=== PATIENT | female | born 1935 | race Caucasian/White ===

== ENCOUNTER → 2017-07-15 | Outpatient (REF) ==
[~2017-07-15] MED LIST: NORCO 325 MG-51 TAB PO; SYNTHROID0.075 MG/T PO; VALIUM 2MG T2 MG/TAB PO; ZESTRIL 5MG5 MG PO
== END ==
LOC: ZLAB.WCH 14:13
DX: Z01.89 Encounter for other specified special examinations (principal)

== ENCOUNTER → 2017-09-06 | Outpatient (REF) ==
[~2017-09-06] MED LIST changes: +AMBIEN 5MG TABLE5 MG PO; +CRESTOR40 MG PO; +FLONASEALLERGY INH; +LEVOXYL0.088 MG PO; +MICROZIDE12.5 MG PO; +NAPROSYN 2250 MG/TAB PO; +PLAVIX 75MG TAB75 MG PO
== END ==
LOC: ZLAB.WCH 18:04
DX: Z01.89 Encounter for other specified special examinations (principal)

== ENCOUNTER → 2017-09-22 | Outpatient (REF) ==
[~2017-09-22] MED LIST changes: +HCTZ12.5TAB PO; +LYRICA 75MG CAP75 MG PO; +SYNTHROID0.088 MG/T PO; +ZESTRIL 20MG TA20 MG PO
== END ==
LOC: ZLAB.WCH 08:45
DX: Z01.89 Encounter for other specified special examinations (principal)

== ENCOUNTER → 2018-03-07 | Outpatient (REF) | LOC: ZLAB.WCH 18:07 | DX: Z01.89 Encounter for other specified special examinations (principal) ==

== ENCOUNTER → 2018-03-14 | Outpatient (REF) | LOC: COL.CARD 15:04 | DX: Z01.818 Encounter for other preprocedural examination (principal) ==

== ENCOUNTER 2020-08-20 15:27 | Emergency (ER) | payer MEDICARE, OTHER ==
[~2020-08-20] VITALS: Ht 142.2 cm; Wt 39.5 kg
[2020-08-20 15:38] VITALS: TEMP 98.8
[2020-08-20 16:58] LABS: BASO % 0.9 % (0.0-2.0); EOS % 1.4 % (0-4.0); GRAN # 1.4 (1.4-6.5); GRAN % 64.6 % (42.2-75.2); HEMOGLOBIN 10.3 g/dl (12.5-16.0); LYMPH # 0.6 (1.2-3.4); LYMPH % 27.9 % (20.0-51.0); MEAN CELL VOLUME 98 fl (80.0-100.0); MEAN CORPUSCULAR HEMOGLOBIN 33 pg (27.0-31.0); MEAN CORPUSCULAR HGB CONC 34 g/dl (33.0-37.0); MEAN PLATELET VOLUME 9.6 fl (7.4-10.4); MONO # 0.1 (0.1-0.6); MONO % 4.7 % (1.7-9.3); PLATELET COUNT 173 K/mm3 (130-400); RED BLOOD COUNT 3.15 M/mm3 (4.10-5.30); REDCELL DISTRIBUTION WIDTH-CV 12.8 % (11.5-14.5)
[2020-08-20 17:01] LABS: HEMATOCRIT 30.7 % (37.0-47.0)
[2020-08-20 17:30] LABS: ALANINE AMINOTRANSFERASE 10 U/L (4-34); ALBUMIN 4.5 gm/dL (3.5-5.0); ALKALINE PHOSPHATASE 71 U/L (50-136); ANION GAP 7 mmol/L (7-16); AST,SGOT 30 U/L (15-37); BILIRUBIN,TOTAL 0.6 mg/dL (0.0-1.0); BLOOD UREA NITROGEN 20 mg/dL (7-17); CALCIUM 9.6 mg/dL (8.4-10.2); CARBON DIOXIDE 27 mmol/L (22-30); CHLORIDE 104 mmol/L (98-107); CREATININE, serum 1.05 (0.52-1.25); GLUCOSE 110 mg/dL (74-106); POTASSIUM 4.2 mmol/L (3.4-5.0); SODIUM 138 mmol/L (137-145); TOTAL PROTEIN 6.8 gm/dL (6.4-8.2)
[2020-08-20 17:36] LABS: C-REACTIVE PROTEIN < 0.5 mg/dL (0.0-0.9)
[2020-08-20 18:36] VITALS: BP 148/88; PULSE 80
== END 2020-08-20 18:37 | disposition home or self-care (01) ==
LOC: COL.ER 15:27
PROVIDERS: Nurse Practitioner
DX: R53.81 Other malaise (principal); R05 Cough; F32.9 Major depressive disorder, single episode, unspecified; Z20.828 Contact with and (suspected) exposure to other viral communicable diseases; Z90.710 Acquired absence of both cervix and uterus; Z79.02 Long term (current) use of antithrombotics/antiplatelets

== ENCOUNTER 2021-04-03 13:00 | Outpatient (RCR) | payer MEDICARE, OTHER ==
[~2021-04-03] VITALS: Ht 142.2 cm; Wt 42.2 kg
[2021-04-03] VITALS (9 sets, daily range): BP systolic 124–171; BP diastolic 70–705; PULSE 60–76; TEMP 97.9–98.1
== END 2021-04-03 17:36 | disposition home or self-care (01) ==
LOC: EUO 13:00 → EDSTATUS 13:00 → EUO 17:36
DX: D61.818 Other pancytopenia (principal)
CPT/HCPCS: J7050; P9040